=== PATIENT | female | born 1960 | race Asian ===

== ENCOUNTER 2018-08-21 08:21 | Emergency (ER) | payer MEDICAID, OTHER ==
[~2018-08-21] VITALS: Ht 160 cm; Wt 52.3 kg
[2018-08-21] MEDS ORDERED: ACETAMINOPHEN 500 MG TABLET PO ONE ×2 (09:00→16:00)
[2018-08-21 09:26] LABS: BASOPHILS % (AUTO) 0.4 % (0.0-2.0); EOSINOPHILS % (AUTO) 0 % (1.0-6.0); HEMATOCRIT 39.8 % (36-46); HEMOGLOBIN 13.3 g/dL (12.0-16.0); LYMPHOCYTES # (AUTO) 0.9 K/uL (1.0-4.8); LYMPHOCYTES % (AUTO) 7.3 % (22.0-44.0); MEAN CORPUSCULAR HEMOGLOBIN 29.1 pg (26.0-34.0); MEAN CORPUSCULAR HGB CONC 33.5 G/dL (31.0-37.0); MEAN CORPUSCULAR VOLUME 87 fL (80-100); MONOCYTES # (AUTO) 0.8 K/uL (0.1-1.0); NEUTROPHILS # (AUTO) 11.1 K/uL (1.8-7.7); PLATELET COUNT (AUTO) 284 K/uL (150-450); RED BLOOD CELL COUNT(AUTO) 4.58 MIL/uL (4.00-5.20); RED CELL DISTRIBUTION WIDTH 12.5 % (11.5-14.5)
[2018-08-21 09:27] LABS: NEUTROPHILS % (AUTO) 86.3 % (40.0-70.0)
[2018-08-21] MEDS ORDERED: KETOROLAC TROMETHAMINE 30 MG/ML VIAL IVP ONE (09:45)
[2018-08-21] MEDS ORDERED: SODIUM CHLORIDE 0.9% 1,000 ML IV ONE (09:45)
[2018-08-21 09:47] LABS: ANION GAP 8 mmol/L (8-16); CALCIUM, TOTAL 8.9 mg/dL (8.8-10.5); CARBON DIOXIDE 27 mmol/L (22-29); CHLORIDE 100 mmol/L (98-107); CREATININE 0.73 mg/dL (0.60-1.30); GLOMERULAR FILTR. RATE CALC > 60 mL/min (>60); GLUCOSE,RANDOM 101 mg/dL (70-110); POTASSIUM 3.1 mmol/L (3.5-5.1); SODIUM SERUM 135 mmol/L (136-145); UREA NITROGEN, BLOOD 8 mg/dL (7-18)
[2018-08-21 09:50] LABS: APPEARANCE,URINE CLOUDY (CLEAR); BILIRUBIN,URINE NEGATIVE (NEGATIVE); GLUCOSE, URINE (UA) NEGATIVE (NEGATIVE); KETONES,URINE NEGATIVE (NEGATIVE); LEUKOCYTE ESTERASE ,URINE SMALL (NEGATIVE); NITRATE,URINE POSITIVE (NEGATIVE); OCCULT BLOOD,URINE LARGE (NEGATIVE); PROTEIN,URINE NEGATIVE (NEGATIVE); UROBILINOGEN,URINE 0.2 mg/dL (<=1.0)
[2018-08-21 09:51] LABS: ALANINE AMINOTRANSFERASE 17 U/L (12-78); ALBUMIN 3.2 g/dL (3.4-5.0); ALKALINE PHOSPHATASE 78 U/L (46-116); ASPARTATE AMINOTRANSFERASE 16 U/L (15-37); BILIRUBIN,TOTAL 0.6 mg/dL (0.1-1.0); LIPASE 105 U/L (73-393); TOTAL PROTEIN, SERUM 7.6 g/dL (6.4-8.2)
[2018-08-21 10:02] LABS: BACTERIA,URINE Many /HPF (None Seen); SQUAMOUS EPITHELIAL CELL,UR Few /LPF (None Seen)
[2018-08-21 10:10] LABS: INFLUENZA TYPE A NEGATIVE FOR TYPE A (NEGATIVE); INFLUENZA TYPE B NEGATIVE FOR TYPE B (NEGATIVE)
[2018-08-21] MEDS ORDERED: IOVERSOL 350 MG/ML 100 ML VIAL ONE (10:18)
[2018-08-21] MEDS ORDERED: PIPERACILLIN/TAZO 3.375 GM/D5W 50 ML IV ONE (14:30)
[2018-08-21] MEDS ORDERED: POTASSIUM CHLORIDE 20 MEQ ER TABLET PO ONE (14:30)
[2018-08-21] MEDS ORDERED: IBUPROFEN 600 MG TABLET PO ONE (16:00)
[2018-08-21 16:25] VITALS: BP 157/77
== END 2018-08-21 16:40 | disposition home or self-care (01) ==
LOC: EMS 08:22
DX: N39.0 Urinary tract infection, site not specified (principal); F17.210 Nicotine dependence, cigarettes, uncomplicated
CPT/HCPCS: 36415; 74176; 76856; 80053; 81001; 83690; 84484; 85025; 87077; 87086; 87186; 87804; 93005; 96365; 96375; 99284; J1885; J2543; J7030; Q9967

== ENCOUNTER 2021-11-29 00:16 | Emergency (ER) | payer MEDICAID ==
[~2021-11-29] VITALS: Ht 160 cm; Wt 63.1 kg
[2021-11-29 01:33] VITALS: BP 135/96
[2021-11-29] MEDS ORDERED: DOXYCYCLINE HYCLATE 100 MG TABLET PO ONE (01:45)
[2021-11-29] MEDS ORDERED: IBUPROFEN 600 MG TABLET PO ONE (01:45)
[2021-11-29] MEDS ORDERED: DOXY-354 PO (02:09)
[2021-11-29] MEDS ORDERED: IBUP-2070 PO (02:16)
== END 2021-11-29 02:26 | disposition left against medical advice (07) ==
LOC: EMS 00:17
DX: S60.444A External constriction of right ring finger, initial encounter (principal); L03.011 Cellulitis of right finger; F17.210 Nicotine dependence, cigarettes, uncomplicated; W49.04XA Ring or other jewelry causing external constriction, initial encounter; Y93.89 Activity, other specified; Y92.89 Other specified places as the place of occurrence of the external cause; Y99.8 Other external cause status
CPT/HCPCS: 99283; 99284

== ENCOUNTER 2023-04-29 15:12 | Inpatient (IN) | payer MEDICAID ==
[~2023-04-29] VITALS: Ht 165.1 cm; Wt 53.8 kg
[~2023-04-29 15:12] MED LIST: AMOX1TAB15 PO
[2023-04-29] MEDS ORDERED: 0.9% SODIUM CHLORIDE 10 ML SYRINGE IVP PRN (15:30)
[2023-04-29] MEDS ORDERED: SODIUM CHLORIDE 0.9% 100 ML ONE (15:49)
[2023-04-29] MEDS ORDERED: IOHEXOL 350 MG/ML 100 ML VIAL ONE (15:49)
[2023-04-29 16:10] LABS: BASOPHILS % (AUTO) 0.5 % (0.0-2.0); EOSINOPHILS % (AUTO) 0.4 % (1.0-6.0); HEMATOCRIT 33.6 % (36-46); HEMOGLOBIN 10.4 g/dL (12.0-16.0); LYMPHOCYTES # (AUTO) 0.9 K/uL (1.0-4.8); LYMPHOCYTES % (AUTO) 8.6 % (22.0-44.0); MEAN CORPUSCULAR HEMOGLOBIN 24.1 pg (26.0-34.0); MEAN CORPUSCULAR HGB CONC 31.1 G/dL (31.0-37.0); MEAN CORPUSCULAR VOLUME 78 fL (80-100); MONOCYTES # (AUTO) 0.6 K/uL (0.1-1.0); MONOCYTES % (AUTO) 6.1 % (2.0-9.0); NEUTROPHILS # (AUTO) 8.6 K/uL (1.8-7.7); NEUTROPHILS % (AUTO) 84.4 % (40.0-70.0); PLATELET COUNT (AUTO) 272 K/uL (150-450); RED BLOOD CELL COUNT(AUTO) 4.32 MIL/uL (4.00-5.20); RED CELL DISTRIBUTION WIDTH 20.2 % (11.5-14.5); WHITE BLOOD COUNT (AUTO) 10.2 K/uL (4.5-11.0)
[2023-04-29 16:18] LABS: COVID AG,FIA SOURCE NASAL SWAB
[2023-04-29 16:22] LABS: ANION GAP 13 mmol/L (8-16); CALCIUM, TOTAL 8.3 mg/dL (8.8-10.5); CARBON DIOXIDE 18 mmol/L (22-29); CHLORIDE 106 mmol/L (98-107); CREATININE 3.02 mg/dL (0.60-1.30); GLOMERULAR FILTR. RATE CALC 16 mL/min (>60); GLUCOSE,RANDOM 134 mg/dL (70-110); POTASSIUM 4.1 mmol/L (3.5-5.1); SODIUM SERUM 137 mmol/L (136-145); UREA NITROGEN, BLOOD 60 mg/dL (7-18)
[2023-04-29 16:27] LABS: AMMONIA 13 umol/L (11-32); LACTIC ACID 1.1 mmol/L (0.4-2.0)
[2023-04-29 16:29] LABS: B-TYPE NATRIURETIC PEPTIDE > 5000 pg/mL (0-100)
[2023-04-29] MEDS ORDERED: SODIUM CHLORIDE 0.9% 1,000 ML IV ONE (16:30)
[2023-04-29 16:33] LABS: INR 1.2 (0.9-1.1); PROTHROMBIN TIME 12.2 SEC (9.4-11.6)
[2023-04-29 16:35] LABS: TROPONIN I-HIGH SENSITIVITY 2279 ng/L (<51)
[2023-04-29 16:36] LABS: ALCOHOL, BLOOD (SERUM) < 3 mg/dL (0-10)
[2023-04-29 16:38] LABS: SARS-COV2 (COVID) ANTIGEN,FIA Negative (Negative)
[2023-04-29 16:43] LABS: APPEARANCE,URINE CLEAR (CLEAR); BILIRUBIN,URINE NEGATIVE (NEGATIVE); COLOR,URINE COLORLESS (YELLOW); GLUCOSE, URINE (UA) NEGATIVE (NEGATIVE); KETONES,URINE NEGATIVE (NEGATIVE); LEUKOCYTE ESTERASE ,URINE TRACE (NEGATIVE); NITRATE,URINE NEGATIVE (NEGATIVE); OCCULT BLOOD,URINE LARGE (NEGATIVE); PROTEIN,URINE NEGATIVE (NEGATIVE); SPECIFIC GRAVITIY, URINE 1.007 (1.003-1.030); UROBILINOGEN,URINE <=1.0 mg/dL (<=1.0)
[2023-04-29] MEDS ORDERED: LORazepam 2 MG/ML VIAL IVP ONE (16:45)
[2023-04-29 16:47] LABS: ALANINE AMINOTRANSFERASE 148 U/L (12-78); ALBUMIN 3.1 g/dL (3.4-5.0); ALKALINE PHOSPHATASE 332 U/L (46-116); ASPARTATE AMINOTRANSFERASE 82 U/L (15-37); BILIRUBIN,TOTAL 0.7 mg/dL (0.1-1.0); TOTAL PROTEIN, SERUM 7.7 g/dL (6.4-8.2)
[2023-04-29 16:50] LABS: AMPHET/METH SCREEN,URINE NEGATIVE (NEGATIVE); BARBITURATE SCREEN, URINE NEGATIVE (NEGATIVE); BENZODIAZEPINES SCREEN,URINE NEGATIVE (NEGATIVE); CANNABINOID SCREEN,URINE NEGATIVE (NEGATIVE); COCAINE SCREEN,URINE NEGATIVE (NEGATIVE); METHADONE SCREEN, URINE NEGATIVE (NEGATIVE); OPIATE SCREEN,URINE NEGATIVE (NEGATIVE); PHENCYCLIDINE SCREEN,URINE NEGATIVE (NEGATIVE)
[2023-04-29 16:54] LABS: ALCOHOL, URINE DRUG SCREEN NEGATIVE (NEGATIVE)
[2023-04-29 16:59] LABS: CREATINE KINASE, TOTAL ONLY 466 U/L (26-192)
[2023-04-29 17:10] LABS: RBC,URINE 26-50 /HPF (0-2)
[2023-04-29 17:11] LABS: BACTERIA,URINE None Seen /HPF (None Seen); WBC,URINE None Seen /HPF (0-5)
[2023-04-29 17:34] LABS: PLATELET MORPHOLOGY COMMENT LARGE PLTS PRESENT
[2023-04-29 18:01] LABS: TROPONIN I-HIGH SENSITIVITY 1749 ng/L (<51)
[2023-04-29] MEDS ORDERED: ASPIRIN 325 MG TABLET PO ONE (18:15)
[2023-04-29 18:43] LABS: INFLUENZA TYPE A NEGATIVE FOR TYPE A (NEGATIVE); INFLUENZA TYPE B NEGATIVE FOR TYPE B (NEGATIVE)
[2023-04-29] MEDS ORDERED: HYDROCODONE/ACETAMINOPHEN 5-325 MG TABLET PO PRN (20:15)
[2023-04-29] MEDS ORDERED: BISACODYL 10 MG RECTAL RECTAL SUPPOSITORY PR PRN (20:15)
[2023-04-29] MEDS ORDERED: ONDANSETRON HCL 4 MG/2 ML VIAL IVP PRN (20:15)
[2023-04-29] MEDS ORDERED: ACETAMINOPHEN 325 MG TABLET PO PRN (20:15)
[2023-04-29] MEDS: DOCUSATE SODIUM 100 MG CAPSULE PO SCH (20:38)
[2023-04-29] MEDS: CARVEDILOL 3.125 MG TABLET PO SCH (20:38)
[2023-04-29 23:15] VITALS: BP 167/107; PULSE 83; RESP 22; TEMP 98.5; O2SAT 97
[2023-04-30] VITALS (7 sets, daily range): BP systolic 118–170; BP diastolic 80–110; PULSE 60–81; RESP 17–28; TEMP 98.8–100.6; O2SAT 97–100
[2023-04-30] MEDS ORDERED: LORazepam 2 MG/ML VIAL IVP ONE (00:45)
[2023-04-30 05:09] LABS: BASOPHILS % (AUTO) 0.5 % (0.0-2.0); EOSINOPHILS % (AUTO) 1.2 % (1.0-6.0); HEMATOCRIT 29.3 % (36-46); HEMOGLOBIN 9.2 g/dL (12.0-16.0); LYMPHOCYTES # (AUTO) 0.8 K/uL (1.0-4.8); LYMPHOCYTES % (AUTO) 7.5 % (22.0-44.0); MEAN CORPUSCULAR HEMOGLOBIN 24.4 pg (26.0-34.0); MEAN CORPUSCULAR HGB CONC 31.2 G/dL (31.0-37.0); MEAN CORPUSCULAR VOLUME 78 fL (80-100); MONOCYTES # (AUTO) 0.8 K/uL (0.1-1.0); MONOCYTES % (AUTO) 7.6 % (2.0-9.0); NEUTROPHILS # (AUTO) 8.4 K/uL (1.8-7.7); NEUTROPHILS % (AUTO) 83.2 % (40.0-70.0); PLATELET COUNT (AUTO) 224 K/uL (150-450); RED BLOOD CELL COUNT(AUTO) 3.75 MIL/uL (4.00-5.20); RED CELL DISTRIBUTION WIDTH 20.6 % (11.5-14.5); WHITE BLOOD COUNT (AUTO) 10.1 K/uL (4.5-11.0)
[2023-04-30 05:15] LABS: ANION GAP 15 mmol/L (8-16); CALCIUM, TOTAL 7.6 mg/dL (8.8-10.5); CARBON DIOXIDE 15 mmol/L (22-29); CHLORIDE 110 mmol/L (98-107); CREATININE 3.55 mg/dL (0.60-1.30); GLOMERULAR FILTR. RATE CALC 13 mL/min (>60); GLUCOSE,RANDOM 112 mg/dL (70-110); POTASSIUM 4.6 mmol/L (3.5-5.1); SODIUM SERUM 140 mmol/L (136-145); UREA NITROGEN, BLOOD 63 mg/dL (7-18)
[2023-04-30 05:25] LABS: B-TYPE NATRIURETIC PEPTIDE > 5000 pg/mL (0-100)
[2023-04-30 05:26] LABS: TROPONIN I-HIGH SENSITIVITY 1871 ng/L (<51)
[2023-04-30] MEDS: ETHYL ALCOHOL 62% ANTISEPTIC NASAL SANITIZER 0.6 ML AMPUL NASAL SCH ×2 (08:08→20:24)
[2023-04-30] MEDS: ATORVASTATIN CALCIUM 40 MG TABLET PO SCH ×3 (08:08→08:54)
[2023-04-30] MEDS: DOCUSATE SODIUM 100 MG CAPSULE PO SCH ×3 (08:09→20:24)
[2023-04-30] MEDS: PANTOPRAZOLE SODIUM 40 MG DR TABLET PO SCH ×2 (08:09→08:54)
[2023-04-30] MEDS: CARVEDILOL 3.125 MG TABLET PO SCH ×2 (08:09→20:24)
[2023-04-30] MEDS ORDERED: HydrALAZINE HCL 20 MG/ML VIAL IVP PRN (09:30)
[2023-04-30] MEDS ORDERED: SODIUM BICARBONATE 100 MEQ in DEXTROSE 5%-WATER 1,000 ML IV SCH (10:30)
[2023-04-30] MEDS: LABETALOL HCL 5 MG/ML 20 ML VIAL IVP PRN ×2 (11:17→21:49)
[2023-04-30] MEDS: SODIUM BICARBONATE 150 MEQ in DEXTROSE 5%-WATER 1,000 ML IV SCH ×2 (13:56→23:29)
[2023-04-30] MEDS: HydrALAZINE HCL 20 MG/ML VIAL IVP PRN (16:37)
[2023-04-30 17:28] LABS: ANION GAP 15 mmol/L (8-16); CALCIUM, TOTAL 8.3 mg/dL (8.8-10.5); CARBON DIOXIDE 15 mmol/L (22-29); CHLORIDE 109 mmol/L (98-107); CREATININE 4.52 mg/dL (0.60-1.30); GLOMERULAR FILTR. RATE CALC 10 mL/min (>60); GLUCOSE,RANDOM 124 mg/dL (70-110); POTASSIUM 5.1 mmol/L (3.5-5.1); SODIUM SERUM 139 mmol/L (136-145); UREA NITROGEN, BLOOD 76 mg/dL (7-18)
[2023-04-30 17:32] LABS: ACETAMINOPHEN < 2 mcg/mL (10-30)
[2023-04-30 17:38] LABS: SALICYLATE 3.6 mg/dL (2.8-20.0)
[2023-05-01] VITALS: BP 121/97; PULSE 63; RESP 20; TEMP 99.6; O2SAT 99
[2023-05-01 04:00] VITALS: BP 161/92; PULSE 77; RESP 18; TEMP 98.5; O2SAT 99
[2023-05-01 05:05] LABS: CREATININE,URINE RANDOM 35.5 mg/dL (30.0-125.0)
[2023-05-01 05:34] LABS: BASOPHILS % (AUTO) 0.6 % (0.0-2.0); EOSINOPHILS % (AUTO) 0.3 % (1.0-6.0); HEMATOCRIT 28.3 % (36-46); HEMOGLOBIN 8.8 g/dL (12.0-16.0); LYMPHOCYTES # (AUTO) 0.7 K/uL (1.0-4.8); LYMPHOCYTES % (AUTO) 5.9 % (22.0-44.0); MEAN CORPUSCULAR HEMOGLOBIN 24.1 pg (26.0-34.0); MEAN CORPUSCULAR HGB CONC 31.2 G/dL (31.0-37.0); MEAN CORPUSCULAR VOLUME 77 fL (80-100); MONOCYTES # (AUTO) 1.1 K/uL (0.1-1.0); MONOCYTES % (AUTO) 9.6 % (2.0-9.0); NEUTROPHILS % (AUTO) 83.6 % (40.0-70.0); PLATELET COUNT (AUTO) 211 K/uL (150-450); RED BLOOD CELL COUNT(AUTO) 3.66 MIL/uL (4.00-5.20)
[2023-05-01 05:42] LABS: CREATININE 5.25 mg/dL (0.60-1.30); POTASSIUM 4.7 mmol/L (3.5-5.1)
[2023-05-01 05:56] LABS: TROPONIN I-HIGH SENSITIVITY 1276 ng/L (<51)
[2023-05-01] MEDS: HydrALAZINE HCL 20 MG/ML VIAL IVP PRN ×2 (06:42→15:58)
[2023-05-01] MEDS: LABETALOL HCL 5 MG/ML 20 ML VIAL IVP PRN (07:58)
[2023-05-01 08:00] VITALS: BP 187/97; PULSE 71; RESP 24; TEMP 97.7; O2SAT 98
[2023-05-01] MEDS: ETHYL ALCOHOL 62% ANTISEPTIC NASAL SANITIZER 0.6 ML AMPUL NASAL SCH ×2 (08:18→21:47)
[2023-05-01] MEDS: ASPIRIN 81 MG CHEWABLE TABLET PO SCH (08:18)
[2023-05-01] MEDS: ATORVASTATIN CALCIUM 40 MG TABLET PO SCH (08:18)
[2023-05-01] MEDS: DOCUSATE SODIUM 100 MG CAPSULE PO SCH ×2 (08:19→21:00)
[2023-05-01] MEDS: CARVEDILOL 3.125 MG TABLET PO SCH ×2 (09:00→21:00)
[2023-05-01] MEDS: PANTOPRAZOLE SODIUM 40 MG DR TABLET PO SCH (10:19)
[2023-05-01 12:00] VITALS: BP 155/65; PULSE 62; RESP 22; TEMP 97.5; O2SAT 97
[2023-05-01] MEDS: LORazepam 0.5 MG TABLET PO PRN (15:57)
[2023-05-01 16:00] VITALS: BP 144/66; PULSE 52; RESP 24; TEMP 97.7; O2SAT 98
[2023-05-01] MEDS: MORPHINE SULFATE 2 MG/ML SYRINGE IVP PRN (16:25)
[2023-05-01] MEDS: SODIUM BICARBONATE 150 MEQ in DEXTROSE 5%-WATER 1,000 ML IV SCH (16:30)
[2023-05-01 20:00] VITALS: BP 145/64; PULSE 59; RESP 16; TEMP 97.7; O2SAT 98
[2023-05-02] VITALS: BP 152/76; PULSE 68; RESP 15; TEMP 98.4; O2SAT 98
[2023-05-02 04:00] VITALS: BP 169/70; PULSE 83; RESP 16; TEMP 98.5; O2SAT 96
[2023-05-02] MEDS: SODIUM BICARBONATE 150 MEQ in DEXTROSE 5%-WATER 1,000 ML IV SCH ×2 (04:31→20:28)
[2023-05-02] MEDS: LABETALOL HCL 5 MG/ML 20 ML VIAL IVP PRN ×2 (04:36→12:54)
[2023-05-02 05:39] LABS: BASOPHILS % (AUTO) 0.8 % (0.0-2.0); EOSINOPHILS % (AUTO) 2.4 % (1.0-6.0); HEMATOCRIT 27.8 % (36-46); HEMOGLOBIN 8.9 g/dL (12.0-16.0); LYMPHOCYTES # (AUTO) 0.8 K/uL (1.0-4.8); LYMPHOCYTES % (AUTO) 6.3 % (22.0-44.0); MEAN CORPUSCULAR HEMOGLOBIN 24.2 pg (26.0-34.0); MEAN CORPUSCULAR HGB CONC 31.8 G/dL (31.0-37.0); MEAN CORPUSCULAR VOLUME 76 fL (80-100); MONOCYTES % (AUTO) 7.5 % (2.0-9.0); PLATELET COUNT (AUTO) 220 K/uL (150-450); RED BLOOD CELL COUNT(AUTO) 3.66 MIL/uL (4.00-5.20); RED CELL DISTRIBUTION WIDTH 19.9 % (11.5-14.5); WHITE BLOOD COUNT (AUTO) 13.2 K/uL (4.5-11.0)
[2023-05-02 05:51] LABS: CALCIUM, TOTAL 7.4 mg/dL (8.8-10.5); CREATININE 5.91 mg/dL (0.60-1.30); POTASSIUM 4.5 mmol/L (3.5-5.1)
[2023-05-02 08:00] VITALS: BP 167/92; PULSE 90; RESP 29; TEMP 98.9; O2SAT 95
[2023-05-02] MEDS: ASPIRIN 81 MG CHEWABLE TABLET PO SCH (08:17)
[2023-05-02] MEDS: CARVEDILOL 3.125 MG TABLET PO SCH ×2 (08:17→20:56)
[2023-05-02] MEDS: PANTOPRAZOLE SODIUM 40 MG DR TABLET PO SCH (08:17)
[2023-05-02] MEDS: ETHYL ALCOHOL 62% ANTISEPTIC NASAL SANITIZER 0.6 ML AMPUL NASAL SCH ×2 (08:17→20:55)
[2023-05-02] MEDS: ATORVASTATIN CALCIUM 40 MG TABLET PO SCH (08:18)
[2023-05-02] MEDS: DOCUSATE SODIUM 100 MG CAPSULE PO SCH ×2 (08:18→20:56)
[2023-05-02 10:07] LABS: LDL CHOLESTEROL DIRECT 73 mg/dL (0-99)
[2023-05-02 12:00] VITALS: BP 154/83; PULSE 74; RESP 23; TEMP 98.1; O2SAT 97
[2023-05-02] MEDS: CefTRIAXone 1 GM/DEXTROSE 50 ML IV SCH (12:35)
[2023-05-02] MEDS ORDERED: SODIUM CHLORIDE 0.9% 250 ML IV ONE (12:36)
[2023-05-02] MEDS ORDERED: MIDAZOLAM HCL 2 MG/2 ML VIAL IVP ONE (14:15)
[2023-05-02] MEDS ORDERED: LIDOCAINE/PF 1% 30 ML VIAL ONE ×2 (14:22→15:33)
[2023-05-02] MEDS ORDERED: IOHEXOL 300 MG/ML 50 ML VIAL ONE (14:22)
[2023-05-02 16:00] VITALS: BP 121/70; PULSE 60; RESP 16; TEMP 97.2; O2SAT 94
[2023-05-02] MEDS: MORPHINE SULFATE 2 MG/ML SYRINGE IVP PRN ×2 (17:04→23:41)
[2023-05-02 20:00] VITALS: PULSE 83
[2023-05-02] MEDS: LORazepam 0.5 MG TABLET PO PRN (20:56)
[2023-05-03] VITALS: BP 160/70; PULSE 69; RESP 14; TEMP 99; O2SAT 96
[2023-05-03 00:20] LABS: HEMATOCRIT 24.6 % (36-46); HEMOGLOBIN 7.7 g/dL (12.0-16.0)
[2023-05-03 04:00] VITALS: BP 152/92; PULSE 74; RESP 12; TEMP 98.3; O2SAT 95
[2023-05-03 05:17] LABS: BASOPHILS % (AUTO) 0.3 % (0.0-2.0); EOSINOPHILS % (AUTO) 2.9 % (1.0-6.0); HEMATOCRIT 24.8 % (36-46); HEMOGLOBIN 7.8 g/dL (12.0-16.0); LYMPHOCYTES # (AUTO) 0.8 K/uL (1.0-4.8); LYMPHOCYTES % (AUTO) 6.8 % (22.0-44.0); MEAN CORPUSCULAR HEMOGLOBIN 24.1 pg (26.0-34.0); MEAN CORPUSCULAR HGB CONC 31.5 G/dL (31.0-37.0); MEAN CORPUSCULAR VOLUME 77 fL (80-100); MONOCYTES # (AUTO) 1.2 K/uL (0.1-1.0); MONOCYTES % (AUTO) 10.7 % (2.0-9.0); NEUTROPHILS # (AUTO) 9.1 K/uL (1.8-7.7); NEUTROPHILS % (AUTO) 79.3 % (40.0-70.0); PLATELET COUNT (AUTO) 212 K/uL (150-450); RED BLOOD CELL COUNT(AUTO) 3.24 MIL/uL (4.00-5.20); WHITE BLOOD COUNT (AUTO) 11.5 K/uL (4.5-11.0)
[2023-05-03] MEDS ORDERED: FentaNYL CITRATE PF 100 MCG/2 ML VIAL IVP ONE (05:26)
[2023-05-03] MEDS ORDERED: PROPOFOL 1% ISO-OSM 1000 MG/100 ML BOTTLE IV ONE (05:26)
[2023-05-03 05:27] LABS: CALCIUM, TOTAL 7.3 mg/dL (8.8-10.5); CREATININE 4.38 mg/dL (0.60-1.30); POTASSIUM 4.2 mmol/L (3.5-5.1)
[2023-05-03 08:00] VITALS: BP 164/99; PULSE 86; PULSE 89; RESP 18; TEMP 98.9; O2SAT 97
[2023-05-03] MEDS: ETHYL ALCOHOL 62% ANTISEPTIC NASAL SANITIZER 0.6 ML AMPUL NASAL SCH ×2 (08:48→20:56)
[2023-05-03] MEDS: DOCUSATE SODIUM 100 MG CAPSULE PO SCH ×2 (08:48→20:57)
[2023-05-03] MEDS: ATORVASTATIN CALCIUM 40 MG TABLET PO SCH (08:48)
[2023-05-03] MEDS: PANTOPRAZOLE SODIUM 40 MG DR TABLET PO SCH (08:48)
[2023-05-03] MEDS: ASPIRIN 81 MG CHEWABLE TABLET PO SCH (08:49)
[2023-05-03] MEDS: CARVEDILOL 3.125 MG TABLET PO SCH ×2 (08:49→20:57)
[2023-05-03] MEDS: MORPHINE SULFATE 2 MG/ML SYRINGE IVP PRN (08:57)
[2023-05-03] MEDS: LABETALOL HCL 5 MG/ML 20 ML VIAL IVP PRN (10:51)
[2023-05-03 12:00] VITALS: BP 156/69; PULSE 74; RESP 17; TEMP 99.1; O2SAT 96
[2023-05-03] MEDS: CefTRIAXone 1 GM/DEXTROSE 50 ML IV SCH (12:44)
[2023-05-03] MEDS: SODIUM CHLORIDE 0.9% 1,000 ML IV SCH (13:28)
[2023-05-03] MEDS: HydrALAZINE HCL 20 MG/ML VIAL IVP PRN (14:53)
[2023-05-03 16:00] VITALS: BP 160/74; PULSE 95; RESP 22; TEMP 99.2; O2SAT 95
[2023-05-03] MEDS: LORazepam 0.5 MG TABLET PO PRN ×2 (16:58→23:58)
[2023-05-03 20:00] VITALS: BP 159/82; PULSE 98; RESP 23; TEMP 98.8; O2SAT 96
[2023-05-04] VITALS (14 sets, daily range): BP systolic 107–185; BP diastolic 40–110; PULSE 52–93; RESP 15–21; TEMP 97.5–98.6; O2SAT 94–97
[2023-05-04] MEDS: MORPHINE SULFATE 2 MG/ML SYRINGE IVP PRN ×3 (00:25→14:26)
[2023-05-04 05:27] LABS: LYMPHOCYTES # (AUTO) 0.7 K/uL (1.0-4.8); WHITE BLOOD COUNT (AUTO) 9.2 K/uL (4.5-11.0)
[2023-05-04 05:29] LABS: BASOPHILS % (AUTO) 0.6 % (0.0-2.0); EOSINOPHILS % (AUTO) 3.3 % (1.0-6.0); HEMATOCRIT 22.1 % (36-46); LYMPHOCYTES % (AUTO) 7.8 % (22.0-44.0); MEAN CORPUSCULAR HEMOGLOBIN 24.1 pg (26.0-34.0); MEAN CORPUSCULAR HGB CONC 31.3 G/dL (31.0-37.0); MEAN CORPUSCULAR VOLUME 77 fL (80-100); MONOCYTES % (AUTO) 10.4 % (2.0-9.0); NEUTROPHILS # (AUTO) 7.2 K/uL (1.8-7.7); NEUTROPHILS % (AUTO) 77.9 % (40.0-70.0); PLATELET COUNT (AUTO) 222 K/uL (150-450); RED BLOOD CELL COUNT(AUTO) 2.86 MIL/uL (4.00-5.20); RED CELL DISTRIBUTION WIDTH 19.9 % (11.5-14.5)
[2023-05-04 05:33] LABS: CALCIUM, TOTAL 7.7 mg/dL (8.8-10.5); CREATININE 2.54 mg/dL (0.60-1.30); POTASSIUM 3.9 mmol/L (3.5-5.1)
[2023-05-04 05:34] LABS: HEMOGLOBIN 6.9 g/dL (12.0-16.0)
[2023-05-04] MEDS: LORazepam 0.5 MG TABLET PO PRN ×2 (08:05→16:28)
[2023-05-04] MEDS: HydrALAZINE HCL 20 MG/ML VIAL IVP PRN (08:22)
[2023-05-04] MEDS: ASPIRIN 81 MG CHEWABLE TABLET PO SCH (09:00)
[2023-05-04] MEDS: SODIUM CHLORIDE 0.9% 1,000 ML IV SCH (09:01)
[2023-05-04] MEDS ORDERED: SODIUM CHLORIDE 0.9% 500 ML IV ONE (10:02)
[2023-05-04] MEDS: PANTOPRAZOLE SODIUM 40 MG DR TABLET PO SCH (10:04)
[2023-05-04] MEDS: DOCUSATE SODIUM 100 MG CAPSULE PO SCH ×2 (10:04→21:05)
[2023-05-04] MEDS: ATORVASTATIN CALCIUM 40 MG TABLET PO SCH (10:04)
[2023-05-04] MEDS: CARVEDILOL 3.125 MG TABLET PO SCH ×2 (10:04→21:06)
[2023-05-04] MEDS: ETHYL ALCOHOL 62% ANTISEPTIC NASAL SANITIZER 0.6 ML AMPUL NASAL SCH ×2 (10:05→21:05)
[2023-05-04] MEDS: AmLODIPine BESYLATE 10 MG TABLET PO SCH (10:05)
[2023-05-04] MEDS: DEXMEDETOMIDINE HCL 400 MCG in SODIUM CHLORIDE 0.9% 96 ML IV PRN ×2 (10:39→16:30)
[2023-05-04] MEDS: CefTRIAXone 1 GM/DEXTROSE 50 ML IV SCH (12:00)
[2023-05-04] MEDS ORDERED: VANCOMYCIN HCL 500 MG in DEXTROSE 5%-WATER 100 ML IV ONE (16:00)
[2023-05-04 16:39] LABS: % IRON SATURATION 7.9 % (22-44)
[2023-05-04 17:19] LABS: HEMATOCRIT 24.9 % (36-46); HEMOGLOBIN 7.7 g/dL (12.0-16.0)
[2023-05-04] MEDS: PANTOPRAZOLE SODIUM 40 MG/VIAL IVP SCH (21:05)
[2023-05-05] VITALS: BP 154/78; PULSE 67; PULSE 88; RESP 19; TEMP 98.1; O2SAT 96
[2023-05-05] MEDS: LORazepam 0.5 MG TABLET PO PRN ×3 (00:06→17:23)
[2023-05-05] MEDS: DEXMEDETOMIDINE HCL 400 MCG in SODIUM CHLORIDE 0.9% 96 ML IV PRN ×2 (02:21→08:10)
[2023-05-05 04:00] VITALS: BP 129/65; PULSE 43; RESP 18; TEMP 97.9; O2SAT 98
[2023-05-05] MEDS: SODIUM CHLORIDE 0.9% 1,000 ML IV SCH ×2 (04:00→11:02)
[2023-05-05 05:49] LABS: BASOPHILS % (AUTO) 0.7 % (0.0-2.0); EOSINOPHILS % (AUTO) 6.2 % (1.0-6.0); HEMOGLOBIN 7.8 g/dL (12.0-16.0); LYMPHOCYTES # (AUTO) 0.8 K/uL (1.0-4.8); LYMPHOCYTES % (AUTO) 9.4 % (22.0-44.0); MEAN CORPUSCULAR HGB CONC 31.2 G/dL (31.0-37.0); MEAN CORPUSCULAR VOLUME 80 fL (80-100); MONOCYTES # (AUTO) 0.7 K/uL (0.1-1.0); MONOCYTES % (AUTO) 7.6 % (2.0-9.0); NEUTROPHILS # (AUTO) 6.5 K/uL (1.8-7.7); NEUTROPHILS % (AUTO) 76.1 % (40.0-70.0); PLATELET COUNT (AUTO) 220 K/uL (150-450); RED BLOOD CELL COUNT(AUTO) 3.13 MIL/uL (4.00-5.20); RED CELL DISTRIBUTION WIDTH 19.7 % (11.5-14.5); WHITE BLOOD COUNT (AUTO) 8.5 K/uL (4.5-11.0)
[2023-05-05 06:04] LABS: ALBUMIN 2.3 g/dL (3.4-5.0); BILIRUBIN,TOTAL 0.7 mg/dL (0.1-1.0); CREATININE 1.98 mg/dL (0.60-1.30); POTASSIUM 4.1 mmol/L (3.5-5.1); TOTAL PROTEIN, SERUM 6.1 g/dL (6.4-8.2)
[2023-05-05 08:00] VITALS: BP 152/83; PULSE 58; PULSE 63; RESP 17; TEMP 97.4; O2SAT 99
[2023-05-05] MEDS ORDERED: VANCOMYCIN HCL 500 MG in DEXTROSE 5%-WATER 100 ML IV SCH (08:00)
[2023-05-05] MEDS: MAGNESIUM HYDROXIDE SUSPENSION 30 ML UDCUP PO PRN (08:51)
[2023-05-05] MEDS: PANTOPRAZOLE SODIUM 40 MG/VIAL IVP SCH ×2 (08:51→21:33)
[2023-05-05] MEDS: HydrALAZINE HCL 20 MG/ML VIAL IVP PRN ×2 (08:51→15:32)
[2023-05-05] MEDS: AmLODIPine BESYLATE 10 MG TABLET PO SCH (08:52)
[2023-05-05] MEDS: DOCUSATE SODIUM 100 MG CAPSULE PO SCH ×2 (08:53→21:33)
[2023-05-05] MEDS: ATORVASTATIN CALCIUM 40 MG TABLET PO SCH (08:53)
[2023-05-05] MEDS: CARVEDILOL 3.125 MG TABLET PO SCH ×2 (08:53→21:33)
[2023-05-05] MEDS: ETHYL ALCOHOL 62% ANTISEPTIC NASAL SANITIZER 0.6 ML AMPUL NASAL SCH ×2 (08:54→21:35)
[2023-05-05] MEDS: ASPIRIN 81 MG CHEWABLE TABLET PO SCH (08:54)
[2023-05-05] MEDS: MORPHINE SULFATE 2 MG/ML SYRINGE IVP PRN (10:30)
[2023-05-05] MEDS: QUEtiapine FUMARATE 25 MG TABLET PO SCH ×3 (11:54→21:34)
[2023-05-05] MEDS: CefTRIAXone 1 GM/DEXTROSE 50 ML IV SCH (11:54)
[2023-05-05 12:00] VITALS: BP 136/83; PULSE 46; RESP 16; TEMP 98.7; O2SAT 94
[2023-05-05 16:00] VITALS: BP 139/75; PULSE 73; RESP 15; TEMP 98.6; O2SAT 97
[2023-05-05] MEDS ORDERED: LORazepam 1 MG TABLET PO PRN (17:45)
[2023-05-05] MEDS ORDERED: LORazepam 1 MG TABLET PO ONE (17:45)
[2023-05-05] MEDS: HydrALAZINE HCL 25 MG TABLET PO SCH (18:18)
[2023-05-05 20:00] VITALS: BP 121/61; PULSE 54; RESP 17; TEMP 97.5; O2SAT 95
[2023-05-05] MEDS: DIVALPROEX SODIUM 125 MG DR CAPSULE PO SCH (21:34)
[2023-05-05] MEDS: LORazepam 2 MG TABLET PO PRN (23:13)
[2023-05-06] VITALS (7 sets, daily range): BP systolic 120–162; BP diastolic 55–88; PULSE 44–69; RESP 17–31; TEMP 98.1–98.6; O2SAT 94–99
[2023-05-06] MEDS: DEXMEDETOMIDINE HCL 400 MCG in SODIUM CHLORIDE 0.9% 96 ML IV PRN ×3 (00:06→20:49)
[2023-05-06] MEDS: LORazepam 2 MG TABLET PO PRN ×4 (03:44→20:01)
[2023-05-06 05:09] LABS: BASOPHILS % (AUTO) 0.8 % (0.0-2.0); EOSINOPHILS % (AUTO) 4.9 % (1.0-6.0); HEMOGLOBIN 7.5 g/dL (12.0-16.0); LYMPHOCYTES # (AUTO) 0.9 K/uL (1.0-4.8); LYMPHOCYTES % (AUTO) 10.7 % (22.0-44.0); MEAN CORPUSCULAR HEMOGLOBIN 24.8 pg (26.0-34.0); MEAN CORPUSCULAR HGB CONC 31.3 G/dL (31.0-37.0); MEAN CORPUSCULAR VOLUME 79 fL (80-100); MONOCYTES % (AUTO) 11.5 % (2.0-9.0); NEUTROPHILS # (AUTO) 6.4 K/uL (1.8-7.7); NEUTROPHILS % (AUTO) 72.1 % (40.0-70.0); PLATELET COUNT (AUTO) 253 K/uL (150-450); RED BLOOD CELL COUNT(AUTO) 3.03 MIL/uL (4.00-5.20); RED CELL DISTRIBUTION WIDTH 19.4 % (11.5-14.5); WHITE BLOOD COUNT (AUTO) 8.9 K/uL (4.5-11.0)
[2023-05-06 05:28] LABS: ALBUMIN 2.2 g/dL (3.4-5.0); BILIRUBIN,TOTAL 0.3 mg/dL (0.1-1.0); CALCIUM, TOTAL 7.8 mg/dL (8.8-10.5); CREATININE 1.81 mg/dL (0.60-1.30); POTASSIUM 4.3 mmol/L (3.5-5.1); TOTAL PROTEIN, SERUM 5.9 g/dL (6.4-8.2); VANCOMYCIN,RANDOM 11.6 mcg/mL (25.0-50.0)
[2023-05-06] MEDS ORDERED: SODIUM CHLORIDE 0.9% 250 ML IV ONE (07:28)
[2023-05-06] MEDS: CARVEDILOL 3.125 MG TABLET PO SCH ×2 (08:25→20:49)
[2023-05-06] MEDS: DIVALPROEX SODIUM 125 MG DR CAPSULE PO SCH ×2 (08:25→20:00)
[2023-05-06] MEDS: VANCOMYCIN HCL 750 MG in DEXTROSE 5%-WATER 250 ML IV SCH (08:25)
[2023-05-06] MEDS: AmLODIPine BESYLATE 10 MG TABLET PO SCH (08:25)
[2023-05-06] MEDS: QUEtiapine FUMARATE 25 MG TABLET PO SCH ×3 (08:26→19:59)
[2023-05-06] MEDS: MORPHINE SULFATE 2 MG/ML SYRINGE IVP PRN ×2 (08:26→21:34)
[2023-05-06] MEDS: HydrALAZINE HCL 25 MG TABLET PO SCH ×2 (08:26→20:00)
[2023-05-06] MEDS: PANTOPRAZOLE SODIUM 40 MG/VIAL IVP SCH ×2 (08:27→20:01)
[2023-05-06] MEDS: ATORVASTATIN CALCIUM 40 MG TABLET PO SCH (08:27)
[2023-05-06] MEDS: ASPIRIN 81 MG CHEWABLE TABLET PO SCH (08:27)
[2023-05-06] MEDS: ETHYL ALCOHOL 62% ANTISEPTIC NASAL SANITIZER 0.6 ML AMPUL NASAL SCH ×2 (08:27→19:58)
[2023-05-06] MEDS: DOCUSATE SODIUM 100 MG CAPSULE PO SCH ×2 (08:27→19:58)
[2023-05-06] MEDS: CefTRIAXone 1 GM/DEXTROSE 50 ML IV SCH (12:23)
[2023-05-06] MEDS: SODIUM CHLORIDE 0.9% 1,000 ML IV SCH (19:58)
[2023-05-07] VITALS: BP 145/84; PULSE 45; PULSE 63; RESP 17; TEMP 97.7; O2SAT 98
[2023-05-07] MEDS: MORPHINE SULFATE 2 MG/ML SYRINGE IVP PRN (01:37)
[2023-05-07 04:00] VITALS: BP 141/64; PULSE 46; RESP 17; TEMP 98.3; O2SAT 98
[2023-05-07 08:00] VITALS: BP 195/109; PULSE 52; PULSE 81; RESP 25; TEMP 98; O2SAT 97
[2023-05-07 09:26] LABS: EOSINOPHILS % (AUTO) 5.2 % (1.0-6.0); HEMATOCRIT 24.4 % (36-46); HEMOGLOBIN 7.7 g/dL (12.0-16.0); LYMPHOCYTES % (AUTO) 11.8 % (22.0-44.0); MEAN CORPUSCULAR HEMOGLOBIN 25.4 pg (26.0-34.0); MEAN CORPUSCULAR HGB CONC 31.5 G/dL (31.0-37.0); MEAN CORPUSCULAR VOLUME 81 fL (80-100); MONOCYTES # (AUTO) 0.8 K/uL (0.1-1.0); MONOCYTES % (AUTO) 9.1 % (2.0-9.0); NEUTROPHILS # (AUTO) 6.2 K/uL (1.8-7.7); NEUTROPHILS % (AUTO) 72.9 % (40.0-70.0); PLATELET COUNT (AUTO) 267 K/uL (150-450); RED BLOOD CELL COUNT(AUTO) 3.02 MIL/uL (4.00-5.20); RED CELL DISTRIBUTION WIDTH 19.7 % (11.5-14.5); WHITE BLOOD COUNT (AUTO) 8.5 K/uL (4.5-11.0)
[2023-05-07 09:35] LABS: CALCIUM, TOTAL 8.1 mg/dL (8.8-10.5); CREATININE 1.65 mg/dL (0.60-1.30); POTASSIUM 4.1 mmol/L (3.5-5.1)
[2023-05-07] MEDS: ATORVASTATIN CALCIUM 40 MG TABLET PO SCH (10:16)
[2023-05-07] MEDS: ASPIRIN 81 MG CHEWABLE TABLET PO SCH (10:17)
[2023-05-07] MEDS: QUEtiapine FUMARATE 25 MG TABLET PO SCH ×3 (10:17→20:12)
[2023-05-07] MEDS: AmLODIPine BESYLATE 10 MG TABLET PO SCH (10:17)
[2023-05-07] MEDS: ETHYL ALCOHOL 62% ANTISEPTIC NASAL SANITIZER 0.6 ML AMPUL NASAL SCH ×2 (10:18→20:11)
[2023-05-07] MEDS: DOCUSATE SODIUM 100 MG CAPSULE PO SCH ×2 (10:18→20:11)
[2023-05-07] MEDS: CARVEDILOL 3.125 MG TABLET PO SCH ×2 (10:18→20:12)
[2023-05-07] MEDS: HydrALAZINE HCL 25 MG TABLET PO SCH ×2 (11:19→20:14)
[2023-05-07] MEDS: DIVALPROEX SODIUM 125 MG DR CAPSULE PO SCH ×2 (11:19→20:13)
[2023-05-07] MEDS: VANCOMYCIN HCL 750 MG in DEXTROSE 5%-WATER 250 ML IV SCH (11:20)
[2023-05-07] MEDS: PANTOPRAZOLE SODIUM 40 MG/VIAL IVP SCH ×2 (11:22→20:11)
[2023-05-07] MEDS: LORazepam 2 MG TABLET PO PRN ×3 (11:23→21:52)
[2023-05-07 12:00] VITALS: BP 164/80; PULSE 47; PULSE 61; RESP 18; TEMP 97.4; O2SAT 95
[2023-05-07] MEDS: CefTRIAXone 1 GM/DEXTROSE 50 ML IV SCH (14:02)
[2023-05-07] MEDS: DEXTROSE 5%-WATER 1,000 ML IV SCH (14:03)
[2023-05-07 16:00] VITALS: PULSE 55
[2023-05-07 20:00] VITALS: BP 138/65; PULSE 73; RESP 29; TEMP 99; O2SAT 98
[2023-05-07] MEDS: HydrALAZINE HCL 20 MG/ML VIAL IVP PRN (22:44)
[2023-05-08] VITALS: BP 163/74; PULSE 77; RESP 19; TEMP 98.6; O2SAT 97
[2023-05-08 01:03] LABS: GLUCOSE,POINT OF CARE 123 MG/DL (70-110)
[2023-05-08 04:00] VITALS: BP 142/71; PULSE 77; RESP 20; TEMP 98.1; O2SAT 96
[2023-05-08] MEDS: HydrALAZINE HCL 20 MG/ML VIAL IVP PRN ×2 (04:13→10:32)
[2023-05-08 05:06] LABS: BASOPHILS % (AUTO) 0.6 % (0.0-2.0); EOSINOPHILS % (AUTO) 4.4 % (1.0-6.0); HEMATOCRIT 29.6 % (36-46); HEMOGLOBIN 9.3 g/dL (12.0-16.0); LYMPHOCYTES % (AUTO) 9.2 % (22.0-44.0); MEAN CORPUSCULAR HEMOGLOBIN 24.7 pg (26.0-34.0); MEAN CORPUSCULAR HGB CONC 31.2 G/dL (31.0-37.0); MEAN CORPUSCULAR VOLUME 79 fL (80-100); MONOCYTES # (AUTO) 0.9 K/uL (0.1-1.0); NEUTROPHILS % (AUTO) 76.8 % (40.0-70.0); PLATELET COUNT (AUTO) 344 K/uL (150-450); RED BLOOD CELL COUNT(AUTO) 3.74 MIL/uL (4.00-5.20); RED CELL DISTRIBUTION WIDTH 20.2 % (11.5-14.5); WHITE BLOOD COUNT (AUTO) 10.5 K/uL (4.5-11.0)
[2023-05-08 05:22] LABS: CALCIUM, TOTAL 8.6 mg/dL (8.8-10.5); CREATININE 1.64 mg/dL (0.60-1.30); PHOSPHORUS 3.4 mg/dL (2.5-4.9); POTASSIUM 4.1 mmol/L (3.5-5.1)
[2023-05-08 08:00] VITALS: BP 147/71; PULSE 63; PULSE 79; RESP 20; TEMP 98.7; O2SAT 97
[2023-05-08] MEDS: QUEtiapine FUMARATE 25 MG TABLET PO SCH ×3 (08:14→20:50)
[2023-05-08] MEDS: AmLODIPine BESYLATE 10 MG TABLET PO SCH (08:14)
[2023-05-08] MEDS: ASPIRIN 81 MG CHEWABLE TABLET PO SCH (08:14)
[2023-05-08] MEDS: ATORVASTATIN CALCIUM 40 MG TABLET PO SCH (08:14)
[2023-05-08] MEDS: CARVEDILOL 3.125 MG TABLET PO SCH ×2 (08:14→20:50)
[2023-05-08] MEDS: DOCUSATE SODIUM 100 MG CAPSULE PO SCH ×2 (08:15→20:52)
[2023-05-08] MEDS: HydrALAZINE HCL 25 MG TABLET PO SCH (08:15)
[2023-05-08] MEDS: PANTOPRAZOLE SODIUM 40 MG/VIAL IVP SCH ×2 (08:17→20:50)
[2023-05-08] MEDS: ETHYL ALCOHOL 62% ANTISEPTIC NASAL SANITIZER 0.6 ML AMPUL NASAL SCH ×2 (08:17→20:50)
[2023-05-08] MEDS: VANCOMYCIN HCL 750 MG in DEXTROSE 5%-WATER 250 ML IV SCH (08:20)
[2023-05-08] MEDS: DIVALPROEX SODIUM 125 MG DR CAPSULE PO SCH ×2 (08:20→20:51)
[2023-05-08] MEDS: DEXTROSE 5%-WATER 1,000 ML IV SCH ×2 (08:23→23:01)
[2023-05-08 12:00] VITALS: BP 139/57; PULSE 61; RESP 19; TEMP 97.8; O2SAT 95
[2023-05-08] MEDS: CefTRIAXone 1 GM/DEXTROSE 50 ML IV SCH (12:37)
[2023-05-08 16:00] VITALS: BP 143/54; PULSE 58; PULSE 82; RESP 19; TEMP 98.1; O2SAT 97
[2023-05-08 20:00] VITALS: BP 161/66; PULSE 57; RESP 19; TEMP 97.4; O2SAT 99
[2023-05-08] MEDS: HydrALAZINE HCL 50 MG TABLET PO SCH (20:50)
[2023-05-08] MEDS: LORazepam 2 MG TABLET PO PRN (21:35)
[2023-05-09 00:19] VITALS: BP 146/71; PULSE 59; RESP 19; TEMP 98; O2SAT 100
[2023-05-09 04:53] VITALS: BP 156/80; PULSE 76; RESP 20; TEMP 97.6; O2SAT 98
[2023-05-09 07:22] LABS: CALCIUM, TOTAL 8.4 mg/dL (8.8-10.5); CREATININE 1.45 mg/dL (0.60-1.30); MAGNESIUM 1.9 mg/dL (1.80-2.40); PHOSPHORUS 3.8 mg/dL (2.5-4.9); POTASSIUM 3.5 mmol/L (3.5-5.1)
[2023-05-09 07:35] VITALS: BP 157/72; PULSE 64; RESP 18; TEMP 98; O2SAT 98
[2023-05-09] MEDS: VANCOMYCIN HCL 750 MG in DEXTROSE 5%-WATER 250 ML IV SCH (08:13)
[2023-05-09] MEDS: CARVEDILOL 3.125 MG TABLET PO SCH ×2 (08:14→21:51)
[2023-05-09] MEDS: QUEtiapine FUMARATE 25 MG TABLET PO SCH ×3 (08:14→21:51)
[2023-05-09] MEDS: PANTOPRAZOLE SODIUM 40 MG/VIAL IVP SCH ×2 (08:14→21:50)
[2023-05-09] MEDS: ASPIRIN 81 MG CHEWABLE TABLET PO SCH (08:14)
[2023-05-09] MEDS: DIVALPROEX SODIUM 125 MG DR CAPSULE PO SCH ×3 (08:14→21:52)
[2023-05-09] MEDS: DOCUSATE SODIUM 100 MG CAPSULE PO SCH ×3 (08:14→21:51)
[2023-05-09] MEDS: AmLODIPine BESYLATE 10 MG TABLET PO SCH (08:14)
[2023-05-09] MEDS: ATORVASTATIN CALCIUM 40 MG TABLET PO SCH (08:15)
[2023-05-09] MEDS: ETHYL ALCOHOL 62% ANTISEPTIC NASAL SANITIZER 0.6 ML AMPUL NASAL SCH ×2 (08:17→21:50)
[2023-05-09] MEDS: HydrALAZINE HCL 50 MG TABLET PO SCH ×2 (09:00→21:00)
[2023-05-09 11:20] VITALS: BP 144/78; PULSE 52; RESP 18; TEMP 98.2; O2SAT 98
[2023-05-09] MEDS: CefTRIAXone 1 GM/DEXTROSE 50 ML IV SCH (12:47)
[2023-05-09 12:50] LABS: BASOPHILS % (AUTO) 1.3 % (0.0-2.0); EOSINOPHILS % (AUTO) 4.1 % (1.0-6.0); HEMATOCRIT 31.3 % (36-46); HEMOGLOBIN 9.6 g/dL (12.0-16.0); LYMPHOCYTES # (AUTO) 1.1 K/uL (1.0-4.8); LYMPHOCYTES % (AUTO) 11.6 % (22.0-44.0); MEAN CORPUSCULAR HEMOGLOBIN 24.6 pg (26.0-34.0); MEAN CORPUSCULAR HGB CONC 30.6 G/dL (31.0-37.0); MEAN CORPUSCULAR VOLUME 81 fL (80-100); MONOCYTES # (AUTO) 0.7 K/uL (0.1-1.0); MONOCYTES % (AUTO) 7.5 % (2.0-9.0); NEUTROPHILS # (AUTO) 7.1 K/uL (1.8-7.7); NEUTROPHILS % (AUTO) 75.5 % (40.0-70.0); PLATELET COUNT (AUTO) 366 K/uL (150-450); RED BLOOD CELL COUNT(AUTO) 3.89 MIL/uL (4.00-5.20); RED CELL DISTRIBUTION WIDTH 20.5 % (11.5-14.5); WHITE BLOOD COUNT (AUTO) 9.4 K/uL (4.5-11.0)
[2023-05-09 15:33] VITALS: BP 144/75; PULSE 52; RESP 18; TEMP 98.4; O2SAT 97
[2023-05-09] MEDS: DEXTROSE 5%-WATER 1,000 ML IV SCH (15:41)
[2023-05-09 19:35] VITALS: BP 101/50; PULSE 59; RESP 19; TEMP 97.9; O2SAT 98
[2023-05-09] MEDS: ZOLPIDEM TARTRATE 5 MG TABLET PO PRN (21:51)
[2023-05-10 00:40] VITALS: BP 136/91; PULSE 62; RESP 20; TEMP 98; O2SAT 100
[2023-05-10 05:01] VITALS: BP 144/92; PULSE 57; RESP 19; TEMP 97.8; O2SAT 98
[2023-05-10] MEDS: DEXTROSE 5%-WATER 1,000 ML IV SCH (05:07)
[2023-05-10 07:31] VITALS: BP 133/75; PULSE 57; RESP 18; TEMP 97.6; O2SAT 93
[2023-05-10 07:41] LABS: CALCIUM, TOTAL 8.2 mg/dL (8.8-10.5); CREATININE 1.45 mg/dL (0.60-1.30); MAGNESIUM 2.1 mg/dL (1.80-2.40); PHOSPHORUS 3.9 mg/dL (2.5-4.9); POTASSIUM 3.3 mmol/L (3.5-5.1)
[2023-05-10] MEDS ORDERED: POTASSIUM CHLORIDE 20 MEQ ER TABLET PO ONE (07:45)
[2023-05-10] MEDS ORDERED: POTASSIUM CHLORIDE 10 MEQ in DEXTROSE 5%-0.45% SODIUM CHL 1,000 ML IV SCH (09:15)
[2023-05-10] MEDS: VANCOMYCIN HCL 750 MG in DEXTROSE 5%-WATER 250 ML IV SCH (09:46)
[2023-05-10] MEDS: CARVEDILOL 3.125 MG TABLET PO SCH ×2 (09:47→20:01)
[2023-05-10] MEDS: ATORVASTATIN CALCIUM 40 MG TABLET PO SCH (09:47)
[2023-05-10] MEDS: ETHYL ALCOHOL 62% ANTISEPTIC NASAL SANITIZER 0.6 ML AMPUL NASAL SCH ×2 (09:47→20:02)
[2023-05-10] MEDS: AmLODIPine BESYLATE 10 MG TABLET PO SCH (09:47)
[2023-05-10] MEDS: ASPIRIN 81 MG CHEWABLE TABLET PO SCH (09:47)
[2023-05-10] MEDS: QUEtiapine FUMARATE 25 MG TABLET PO SCH ×3 (09:48→20:02)
[2023-05-10] MEDS: HydrALAZINE HCL 50 MG TABLET PO SCH ×2 (09:48→20:01)
[2023-05-10] MEDS: DOCUSATE SODIUM 100 MG CAPSULE PO SCH ×2 (09:48→20:01)
[2023-05-10] MEDS: DIVALPROEX SODIUM 125 MG DR CAPSULE PO SCH ×2 (09:49→20:01)
[2023-05-10] MEDS: PANTOPRAZOLE SODIUM 40 MG/VIAL IVP SCH ×2 (10:21→20:02)
[2023-05-10 11:30] VITALS: BP 148/85; PULSE 53; RESP 19; TEMP 97.5; O2SAT 100
[2023-05-10] MEDS: CefTRIAXone 1 GM/DEXTROSE 50 ML IV SCH (12:25)
[2023-05-10 15:58] VITALS: BP 119/61; PULSE 53; RESP 18; TEMP 97.7; O2SAT 99
[2023-05-10] MEDS: ZOLPIDEM TARTRATE 5 MG TABLET PO PRN (20:01)
[2023-05-10 20:12] VITALS: BP 121/79; PULSE 64; RESP 22; TEMP 98
[2023-05-10] MEDS: MAGNESIUM HYDROXIDE SUSPENSION 30 ML UDCUP PO PRN (20:13)
== END 2023-05-10 20:45 | DRG 45 ==
LOC: EMS 15:13 → ICU 22:37 → EMS 23:01 → 5S 05-08 23:58
PROVIDERS: ADMIT Internal Medicine; ATTEND Internal Medicine
PROC: 0T25X0Z Change Drainage Device in Kidney, External Approach (ICD-10-PCS; 2023-05-02)
PROC: 30233N1 Transfusion of Nonautologous Red Blood Cells into Peripheral Vein, Percutaneous Approach (ICD-10-PCS; principal; 2023-05-04)
PROC: 05HB33Z Insertion of Infusion Device into Right Basilic Vein, Percutaneous Approach (ICD-10-PCS; 2023-05-04)
PROC: 05HA33Z Insertion of Infusion Device into Left Brachial Vein, Percutaneous Approach (ICD-10-PCS; 2023-05-04)
DX: I63.89 Other cerebral infarction (principal); N17.0 Acute kidney failure with tubular necrosis; I21.4 Non-ST elevation (NSTEMI) myocardial infarction; G93.41 Metabolic encephalopathy; I50.31 Acute diastolic (congestive) heart failure; E87.20 Acidosis, unspecified; D63.8 Anemia in other chronic diseases classified elsewhere; F29 Unspecified psychosis not due to a substance or known physiological condition; R65.10 Systemic inflammatory response syndrome (SIRS) of non-infectious origin without acute organ dysfunction; I13.0 Hypertensive heart and chronic kidney disease with heart failure and stage 1 through stage 4 chronic kidney disease, or unspecified chronic kidney disease; T83.89XA Other specified complication of genitourinary prosthetic devices, implants and grafts, initial encounter; Z20.822 Contact with and (suspected) exposure to COVID-19; Y83.8 Other surgical procedures as the cause of abnormal reaction of the patient, or of later complication, without mention of misadventure at the time of the procedure; I16.1 Hypertensive emergency; G81.91 Hemiplegia, unspecified affecting right dominant side; K57.30 Diverticulosis of large intestine without perforation or abscess without bleeding; E87.6 Hypokalemia; N18.9 Chronic kidney disease, unspecified; N13.30 Unspecified hydronephrosis; Y92.89 Other specified places as the place of occurrence of the external cause; Z87.891 Personal history of nicotine dependence; Z90.710 Acquired absence of both cervix and uterus; Z79.899 Other long term (current) drug therapy
CPT/HCPCS: 36245; 36569; 70450; 70544; 70551; 71045; 72125; 74176; 75989; 76000; 76770; 76937; 80048; 80053; 80202; 80307; 81001; 82140; 82271; 82550; 82570; 82728; 82962; 83036; 83540; 83550; 83605; 83721; 83735; 83880; 84100; 84145; 84156; 84300; 84484; 84540; 85014; 85018; 85025; 85610; 85730; 86850; 86900; 86901; 86923; 87040; 87077; 87081; 87205; 87804; 92526; 92610; 93005; 93306; 93880; 99291; C9113; G0378; G0480; G0481; J0360; J0696; J2060; J2250; J2270; J2704; J3010; J3370; J3480; J3490; J7030; J7040; J7050; J7060; P9016; Q9967; 36415-L1; 36415-TC

== ENCOUNTER 2023-06-07 13:26 | Inpatient (IN) | payer MEDICAID ==
[~2023-06-07] VITALS: Ht 157.5 cm; Wt 54.2 kg
[2023-06-07] MEDS ORDERED: SODIUM CHLORIDE 0.9% 1,000 ML IV ONE (13:45)
[2023-06-07 14:39] LABS: CALCIUM, TOTAL 7.8 mg/dL (8.8-10.5); CREATININE 4.61 mg/dL (0.60-1.30)
[2023-06-07 14:44] LABS: ALBUMIN 1.5 g/dL (3.4-5.0); BILIRUBIN,TOTAL 0.3 mg/dL (0.1-1.0); TOTAL PROTEIN, SERUM 5.9 g/dL (6.4-8.2)
[2023-06-07 14:45] LABS: LACTIC ACID 1.7 mmol/L (0.4-2.0)
[2023-06-07 14:48] LABS: TROPONIN I-HIGH SENSITIVITY 57 ng/L (<51)
[2023-06-07 15:25] LABS: BASOPHILS % (AUTO) 1.1 % (0.0-2.0); EOSINOPHILS % (AUTO) 4.3 % (1.0-6.0); HEMATOCRIT 23.8 % (36-46); HEMOGLOBIN 7.5 g/dL (12.0-16.0); LYMPHOCYTES # (AUTO) 1.5 K/uL (1.0-4.8); LYMPHOCYTES % (AUTO) 11.3 % (22.0-44.0); MEAN CORPUSCULAR HEMOGLOBIN 24.8 pg (26.0-34.0); MEAN CORPUSCULAR HGB CONC 31.7 G/dL (31.0-37.0); MEAN CORPUSCULAR VOLUME 78 fL (80-100); MONOCYTES # (AUTO) 1.6 K/uL (0.1-1.0); MONOCYTES % (AUTO) 12.1 % (2.0-9.0); NEUTROPHILS # (AUTO) 9.2 K/uL (1.8-7.7); NEUTROPHILS % (AUTO) 71.2 % (40.0-70.0); PLATELET COUNT (AUTO) 302 K/uL (150-450); RED BLOOD CELL COUNT(AUTO) 3.04 MIL/uL (4.00-5.20); RED CELL DISTRIBUTION WIDTH 22.3 % (11.5-14.5)
[2023-06-07 15:29] LABS: CALCIUM, TOTAL 7.9 mg/dL (8.8-10.5); CREATININE 4.48 mg/dL (0.60-1.30)
[2023-06-07 15:35] LABS: ALBUMIN 1.6 g/dL (3.4-5.0); BILIRUBIN,TOTAL 0.3 mg/dL (0.1-1.0); TOTAL PROTEIN, SERUM 5.8 g/dL (6.4-8.2)
[2023-06-07 15:42] LABS: INR 1.1 (0.9-1.1); PROTHROMBIN TIME 11.4 SEC (9.4-11.6)
[2023-06-07] MEDS ORDERED: CefTRIAXone 1 GM/DEXTROSE 50 ML IV ONE (16:15)
[2023-06-07] MEDS: SODIUM CHLORIDE 0.9% 1,000 ML IV ONE ×2 (16:18→16:20)
[2023-06-07 16:24] LABS: RBC MORPHOLOGY COMMENT ABNORMAL RBC MORPH
[2023-06-07 16:52] LABS: COVID AG,FIA SOURCE NASAL SWAB
[2023-06-07 17:13] LABS: SARS-COV2 (COVID) ANTIGEN,FIA Negative (Negative)
[2023-06-07] MEDS ORDERED: HYDROCODONE/ACETAMINOPHEN 5-325 MG TABLET PO PRN (19:45)
[2023-06-07] MEDS ORDERED: BISACODYL 10 MG RECTAL RECTAL SUPPOSITORY PR PRN (19:45)
[2023-06-07] MEDS ORDERED: ONDANSETRON HCL 4 MG/2 ML VIAL IVP PRN (19:45)
[2023-06-07] MEDS ORDERED: ALBUTEROL SULFATE 2.5 MG/0.5 ML NEB SOLUTION NEB PRN (19:45)
[2023-06-07] MEDS ORDERED: ACETAMINOPHEN 325 MG TABLET PO PRN (19:45)
[2023-06-07] MEDS ORDERED: MAGNESIUM HYDROXIDE SUSPENSION 30 ML UDCUP PO PRN (19:45)
[2023-06-07] MEDS ORDERED: IPRATROPIUM BROMIDE 0.5 MG/2.5 ML NEB SOLUTION NEB PRN (19:45)
[2023-06-07] MEDS ORDERED: VANC250C13 IVPB (19:50)
[2023-06-07] MEDS ORDERED: HYDR50TA36 PO (19:50)
[2023-06-07] MEDS ORDERED: POTA10IV IV (19:50)
[2023-06-07] MEDS ORDERED: CEFT1VIA65 IV (19:50)
[2023-06-07] MEDS ORDERED: QUET25TA PO (19:50)
[2023-06-07] MEDS ORDERED: ATOR40TA28 PO (19:50)
[2023-06-07] MEDS ORDERED: PANT40VI14 IVP (19:50)
[2023-06-07] MEDS ORDERED: DIVA125C20 PO (19:50)
[2023-06-07] MEDS ORDERED: AMLO-258 PO (19:50)
[2023-06-07] MEDS ORDERED: DOCU-385 PO (19:50)
[2023-06-07] MEDS ORDERED: CARV6 PO (19:50)
[2023-06-07] MEDS ORDERED: ASPI-1450 PO (19:50)
[2023-06-07] MEDS ORDERED: VANCOMYCIN 1GM/WATER(PEG/NADA) 200 ML IV ONE (20:00)
[2023-06-07] MEDS ORDERED: VANCOMYCIN 1GM/WATER(PEG/NADA) 200 ML IV PRN (20:15)
[2023-06-07] MEDS ORDERED: LORazepam 2 MG/ML VIAL IVP ONE (21:15)
[2023-06-07] MEDS ORDERED: *CLINICAL-CEFEPIME DOSING CLINICAL ONE (21:15)
[2023-06-07] MEDS ORDERED: SODIUM CHLORIDE 0.9% 250 ML IV ONE (21:15)
[2023-06-07] MEDS: SODIUM CHLORIDE 0.9% 1,000 ML IV SCH (21:32)
[2023-06-07 22:12] LABS: TROPONIN I-HIGH SENSITIVITY 74 ng/L (<51)
[2023-06-07 22:40] LABS: APPEARANCE,URINE TURBID (CLEAR); BILIRUBIN,URINE NEGATIVE (NEGATIVE); COLOR,URINE DARK ORANGE (YELLOW); GLUCOSE, URINE (UA) NEGATIVE (NEGATIVE); KETONES,URINE NEGATIVE (NEGATIVE); LEUKOCYTE ESTERASE ,URINE LARGE (NEGATIVE); NITRATE,URINE NEGATIVE (NEGATIVE); OCCULT BLOOD,URINE LARGE (NEGATIVE); PH,URINE 5.5 (5.0-8.0); PROTEIN,URINE 300-600,SEE CONFIRM mg/dL (NEGATIVE); SPECIFIC GRAVITIY, URINE 1.022 (1.003-1.030)
[2023-06-07 22:43] LABS: CREATININE,URINE RANDOM 125.6 mg/dL (30.0-125.0)
[2023-06-07 22:51] LABS: BACTERIA,URINE Many /HPF (None Seen); SQUAMOUS EPITHELIAL CELL,UR None Seen /LPF (None Seen); SULFOSALICYLIC ACID,URINE 3+ (Negative); WBC,URINE >100 /HPF (0-5); YEAST,URINE Many /HPF (None Seen)
[2023-06-07 23:07] VITALS: BP 135/51; PULSE 91; RESP 22; TEMP 98.1
[2023-06-07] MEDS: MORPHINE SULFATE 2 MG/ML SYRINGE IVP PRN (23:14)
[2023-06-08] MEDS ORDERED: CEFEPIME HCL 0.5 GM in DEXTROSE 5%-WATER 50 ML IV ONE ×2
[2023-06-08] MEDS: HEPARIN SODIUM,PORCINE 5,000 UNITS/ML VIAL SQ SCH ×4 (00:11→23:40)
[2023-06-08] MEDS ORDERED: HALOPERIDOL LACTATE 5 MG/ML VIAL IM ONE (00:45)
[2023-06-08] MEDS: MORPHINE SULFATE 2 MG/ML SYRINGE IVP PRN (03:09)
[2023-06-08 04:35] VITALS: BP 142/69; PULSE 96; RESP 20; TEMP 98.2
[2023-06-08 07:12] LABS: CALCIUM, TOTAL 7.5 mg/dL (8.8-10.5); CREATININE 4.89 mg/dL (0.60-1.30); POTASSIUM 4.5 mmol/L (3.5-5.1)
[2023-06-08 07:27] VITALS: BP 111/75; RESP 18; TEMP 98.2
[2023-06-08 08:44] LABS: BASOPHILS % (AUTO) 1.5 % (0.0-2.0); EOSINOPHILS % (AUTO) 2.4 % (1.0-6.0); HEMATOCRIT 23.1 % (36-46); HEMOGLOBIN 7.2 g/dL (12.0-16.0); LYMPHOCYTES # (AUTO) 1.3 K/uL (1.0-4.8); LYMPHOCYTES % (AUTO) 7.1 % (22.0-44.0); MEAN CORPUSCULAR HEMOGLOBIN 24.7 pg (26.0-34.0); MEAN CORPUSCULAR HGB CONC 31.3 G/dL (31.0-37.0); MEAN CORPUSCULAR VOLUME 79 fL (80-100); MONOCYTES # (AUTO) 1.4 K/uL (0.1-1.0); MONOCYTES % (AUTO) 7.6 % (2.0-9.0); NEUTROPHILS % (AUTO) 81.4 % (40.0-70.0); PLATELET COUNT (AUTO) 333 K/uL (150-450); RED BLOOD CELL COUNT(AUTO) 2.93 MIL/uL (4.00-5.20); RED CELL DISTRIBUTION WIDTH 21.9 % (11.5-14.5); WHITE BLOOD COUNT (AUTO) 18.4 K/uL (4.5-11.0)
[2023-06-08] MEDS: PANTOPRAZOLE SODIUM 40 MG DR TABLET PO SCH (08:53)
[2023-06-08] MEDS: SODIUM CHLORIDE 0.9% 1,000 ML IV SCH (08:55)
[2023-06-08 08:57] LABS: ALBUMIN 1.7 g/dL (3.4-5.0); BILIRUBIN,TOTAL 0.4 mg/dL (0.1-1.0); TOTAL PROTEIN, SERUM 6.2 g/dL (6.4-8.2)
[2023-06-08 11:40] VITALS: BP 106/67; PULSE 82; RESP 20; TEMP 98.4
[2023-06-08] MEDS ORDERED: CefTRIAXone 1 GM/DEXTROSE 50 ML IV SCH (13:00)
[2023-06-08] MEDS ORDERED: MIDAZOLAM HCL 2 MG/2 ML VIAL ONE (13:50)
[2023-06-08] MEDS ORDERED: IODIXANOL 320 MG/ML 50 ML VIAL ONE (13:50)
[2023-06-08] MEDS ORDERED: FentaNYL CITRATE PF 100 MCG/2 ML VIAL ONE (13:50)
[2023-06-08] MEDS ORDERED: LIDOCAINE/PF 1% 30 ML VIAL ONE (13:50)
[2023-06-08] MEDS ORDERED: FentaNYL CITRATE PF 100 MCG/2 ML VIAL IVP ONE (15:30)
[2023-06-08] MEDS ORDERED: IODIXANOL 320 MG/ML 50 ML VIAL IVP ONE (15:30)
[2023-06-08 16:58] VITALS: BP 112/70; PULSE 89; RESP 18; TEMP 98
[2023-06-08 19:51] VITALS: BP 100/47; PULSE 74; RESP 19; TEMP 98
[2023-06-08 23:48] VITALS: BP 106/60; PULSE 77; RESP 20; TEMP 98
[2023-06-09] MEDS: MORPHINE SULFATE 2 MG/ML SYRINGE IVP PRN (01:04)
[2023-06-09 05:01] VITALS: BP 112/75; PULSE 80; RESP 19; TEMP 98.2
[2023-06-09] MEDS: SODIUM CHLORIDE 0.9% 1,000 ML IV SCH ×3 (06:29→22:47)
[2023-06-09 08:00] VITALS: BP 112/56; PULSE 74; RESP 19; TEMP 97.6
[2023-06-09] MEDS: HEPARIN SODIUM,PORCINE 5,000 UNITS/ML VIAL SQ SCH ×2 (08:10→16:06)
[2023-06-09] MEDS: PANTOPRAZOLE SODIUM 40 MG DR TABLET PO SCH (08:10)
[2023-06-09 08:35] LABS: CALCIUM, TOTAL 7.9 mg/dL (8.8-10.5); CREATININE 4.75 mg/dL (0.60-1.30); MAGNESIUM 2.5 mg/dL (1.80-2.40); PHOSPHORUS 5.5 mg/dL (2.5-4.9); POTASSIUM 4.4 mmol/L (3.5-5.1); VANCOMYCIN,RANDOM 18.7 mcg/mL (25.0-50.0)
[2023-06-09] MEDS ORDERED: LACTULOSE 20 GM/30 ML SOLUTION UDCUP PO SCH (11:45)
[2023-06-09] MEDS ORDERED: VANCOMYCIN HCL 500 MG in DEXTROSE 5%-WATER 100 ML IV ONE (12:00)
[2023-06-09 12:30] VITALS: BP 136/62; PULSE 58; RESP 20; TEMP 98
[2023-06-09 16:07] VITALS: BP 107/58; PULSE 75; RESP 20; TEMP 97.6
[2023-06-09] MEDS ORDERED: VANC750V IV (16:58)
[2023-06-09] MEDS ORDERED: [UNRECOGNIZED DRUG - OTHER] IVPB SCH (17:00)
[2023-06-09] MEDS ORDERED: CefTRIAXone SODIUM 1 GM/VIAL IV SCH (17:00)
[2023-06-09 20:47] VITALS: BP 116/67; PULSE 85; RESP 21; TEMP 98
[2023-06-09] MEDS: CEFEPIME HCL 0.5 GM in DEXTROSE 5%-WATER 50 ML IV SCH (20:53)
[2023-06-09] MEDS: HydrALAZINE HCL 50 MG TABLET PO SCH ×2 (20:53→21:00)
[2023-06-09] MEDS: QUEtiapine FUMARATE 25 MG TABLET PO SCH (20:54)
[2023-06-09] MEDS: PANTOPRAZOLE SODIUM 40 MG/VIAL IVP SCH (20:54)
[2023-06-09] MEDS: CARVEDILOL 6.25 MG TABLET PO SCH ×2 (20:54→21:00)
[2023-06-09] MEDS: DIVALPROEX SODIUM 125 MG DR CAPSULE PO SCH ×2 (20:54→21:00)
[2023-06-10 00:24] VITALS: BP 131/70; PULSE 85; RESP 19; TEMP 98
[2023-06-10] MEDS: DIVALPROEX SODIUM 125 MG DR CAPSULE PO SCH ×3 (00:52→21:24)
[2023-06-10 04:15] VITALS: BP 131/62; PULSE 92; RESP 21; TEMP 98.5
[2023-06-10 07:14] LABS: CALCIUM, TOTAL 7.7 mg/dL (8.8-10.5); CREATININE 3.75 mg/dL (0.60-1.30); POTASSIUM 4.5 mmol/L (3.5-5.1)
[2023-06-10 08:53] VITALS: BP 141/59; PULSE 88; RESP 20; TEMP 98.6
[2023-06-10] MEDS: PANTOPRAZOLE SODIUM 40 MG/VIAL IVP SCH ×2 (09:40→21:23)
[2023-06-10] MEDS: HydrALAZINE HCL 50 MG TABLET PO SCH ×2 (09:41→21:23)
[2023-06-10] MEDS: ASPIRIN 81 MG CHEWABLE TABLET PO SCH (09:41)
[2023-06-10] MEDS: DOCUSATE SODIUM 100 MG CAPSULE PO SCH (09:41)
[2023-06-10] MEDS: AmLODIPine BESYLATE 10 MG TABLET PO SCH (09:41)
[2023-06-10] MEDS: CARVEDILOL 6.25 MG TABLET PO SCH ×2 (09:42→21:24)
[2023-06-10] MEDS: QUEtiapine FUMARATE 25 MG TABLET PO SCH ×3 (09:42→21:24)
[2023-06-10] MEDS: ATORVASTATIN CALCIUM 40 MG TABLET PO SCH (09:43)
[2023-06-10] MEDS: SODIUM CHLORIDE 0.9% 1,000 ML IV SCH (09:43)
[2023-06-10] MEDS: HEPARIN SODIUM,PORCINE 5,000 UNITS/ML VIAL SQ SCH ×4 (09:44→23:07)
[2023-06-10 11:02] VITALS: BP 124/68; PULSE 85; RESP 18; TEMP 98.2
[2023-06-10] MEDS: SODIUM BICARBONATE 150 MEQ in DEXTROSE 5%-WATER 1,000 ML IV SCH (12:34)
[2023-06-10] MEDS ORDERED: PNEUMOCOCCAL VACCINE POLYVALENT 0.5 ML SYRINGE [PPSV23] IM. ONE (14:45)
[2023-06-10 17:38] VITALS: BP 133/72; PULSE 75; RESP 20; TEMP 97.7
[2023-06-10 19:54] VITALS: BP 131/64; PULSE 81; RESP 20; TEMP 98.6
[2023-06-10] MEDS: ZOLPIDEM TARTRATE 5 MG TABLET PO PRN (21:24)
[2023-06-10] MEDS: CEFEPIME HCL 0.5 GM in DEXTROSE 5%-WATER 50 ML IV SCH (21:53)
[2023-06-11] VITALS (13 sets, daily range): BP systolic 111–148; BP diastolic 58–99; PULSE 68–91; RESP 16–20; TEMP 97.5–98.8
[2023-06-11] MEDS: SODIUM BICARBONATE 150 MEQ in DEXTROSE 5%-WATER 1,000 ML IV SCH ×2 (02:59→23:00)
[2023-06-11 07:51] LABS: CALCIUM, TOTAL 7.5 mg/dL (8.8-10.5); CREATININE 2.38 mg/dL (0.60-1.30); POTASSIUM 4.1 mmol/L (3.5-5.1)
[2023-06-11] MEDS: ATORVASTATIN CALCIUM 40 MG TABLET PO SCH (08:04)
[2023-06-11] MEDS: ASPIRIN 81 MG CHEWABLE TABLET PO SCH (08:04)
[2023-06-11] MEDS: CARVEDILOL 6.25 MG TABLET PO SCH ×2 (08:04→20:12)
[2023-06-11] MEDS: DOCUSATE SODIUM 100 MG CAPSULE PO SCH (08:05)
[2023-06-11] MEDS: AmLODIPine BESYLATE 10 MG TABLET PO SCH (08:05)
[2023-06-11] MEDS: QUEtiapine FUMARATE 25 MG TABLET PO SCH ×3 (08:05→20:12)
[2023-06-11] MEDS: DIVALPROEX SODIUM 125 MG DR CAPSULE PO SCH ×2 (08:05→20:12)
[2023-06-11] MEDS: HEPARIN SODIUM,PORCINE 5,000 UNITS/ML VIAL SQ SCH ×3 (08:06→23:08)
[2023-06-11] MEDS: HydrALAZINE HCL 50 MG TABLET PO SCH ×2 (08:06→20:12)
[2023-06-11] MEDS: PANTOPRAZOLE SODIUM 40 MG/VIAL IVP SCH ×2 (08:06→20:12)
[2023-06-11 08:17] LABS: VANCOMYCIN,RANDOM 17.4 mcg/mL (25.0-50.0)
[2023-06-11 10:30] LABS: EOSINOPHILS % (AUTO) 7.7 % (1.0-6.0); LYMPHOCYTES # (AUTO) 1.2 K/uL (1.0-4.8); LYMPHOCYTES % (AUTO) 13.5 % (22.0-44.0); MEAN CORPUSCULAR HEMOGLOBIN 25.4 pg (26.0-34.0); MEAN CORPUSCULAR HGB CONC 32.4 G/dL (31.0-37.0); MEAN CORPUSCULAR VOLUME 78 fL (80-100); MONOCYTES % (AUTO) 10.8 % (2.0-9.0); NEUTROPHILS # (AUTO) 6.3 K/uL (1.8-7.7); PLATELET COUNT (AUTO) 402 K/uL (150-450); RED BLOOD CELL COUNT(AUTO) 2.59 MIL/uL (4.00-5.20); RED CELL DISTRIBUTION WIDTH 22.3 % (11.5-14.5); WHITE BLOOD COUNT (AUTO) 9.2 K/uL (4.5-11.0)
[2023-06-11 10:34] LABS: ALBUMIN 1.8 g/dL (3.4-5.0); BILIRUBIN,TOTAL 0.3 mg/dL (0.1-1.0); TOTAL PROTEIN, SERUM 6.5 g/dL (6.4-8.2)
[2023-06-11 10:38] LABS: HEMATOCRIT 20.3 % (36-46); HEMOGLOBIN 6.6 g/dL (12.0-16.0)
[2023-06-11 11:07] LABS: RBC MORPHOLOGY COMMENT ABNORMAL RBC MORPH
[2023-06-11] MEDS ORDERED: SODIUM CHLORIDE 0.9% 250 ML IV ONE (13:07)
[2023-06-11] MEDS ORDERED: VANCOMYCIN HCL 500 MG in DEXTROSE 5%-WATER 100 ML IV ONE (15:00)
[2023-06-11 15:34] LABS: APPEARANCE,URINE CLEAR (CLEAR); BILIRUBIN,URINE NEGATIVE (NEGATIVE); COLOR,URINE LIGHT YELLOW (YELLOW); GLUCOSE, URINE (UA) NEGATIVE (NEGATIVE); KETONES,URINE NEGATIVE (NEGATIVE); LEUKOCYTE ESTERASE ,URINE LARGE (NEGATIVE); NITRATE,URINE NEGATIVE (NEGATIVE); OCCULT BLOOD,URINE LARGE (NEGATIVE); PROTEIN,URINE 30-70 mg/dL (NEGATIVE); SPECIFIC GRAVITIY, URINE 1.014 (1.003-1.030); UROBILINOGEN,URINE <=1.0 mg/dL (<=1.0)
[2023-06-11 16:10] LABS: SODIUM,URINE RANDOM 61 mmol/l (20-110); UREA NITROGEN,URINE RANDOM 648 mg/dL (350-1000)
[2023-06-11 16:12] LABS: BACTERIA,URINE Few /HPF (None Seen); YEAST,URINE Moderate /HPF (None Seen)
[2023-06-11 16:13] LABS: RBC,URINE 51-100 /HPF (0-2)
[2023-06-11] MEDS: CEFEPIME HCL 0.5 GM in DEXTROSE 5%-WATER 50 ML IV SCH (20:11)
[2023-06-11] MEDS: ZOLPIDEM TARTRATE 5 MG TABLET PO PRN (20:12)
[2023-06-12 03:55] VITALS: BP 108/64; PULSE 97; RESP 20; TEMP 98.3
[2023-06-12 07:39] LABS: EOSINOPHILS % (AUTO) 11.3 % (1.0-6.0); HEMATOCRIT 24.2 % (36-46); HEMOGLOBIN 8.2 g/dL (12.0-16.0); LYMPHOCYTES # (AUTO) 1.6 K/uL (1.0-4.8); LYMPHOCYTES % (AUTO) 17.4 % (22.0-44.0); MEAN CORPUSCULAR HEMOGLOBIN 26.4 pg (26.0-34.0); MEAN CORPUSCULAR HGB CONC 33.9 G/dL (31.0-37.0); MEAN CORPUSCULAR VOLUME 78 fL (80-100); MONOCYTES % (AUTO) 10.9 % (2.0-9.0); NEUTROPHILS # (AUTO) 5.3 K/uL (1.8-7.7); NEUTROPHILS % (AUTO) 59.4 % (40.0-70.0); PLATELET COUNT (AUTO) 332 K/uL (150-450); RED BLOOD CELL COUNT(AUTO) 3.12 MIL/uL (4.00-5.20); RED CELL DISTRIBUTION WIDTH 20.7 % (11.5-14.5)
[2023-06-12 07:53] LABS: RBC MORPHOLOGY COMMENT ABNORMAL RBC MORPH
[2023-06-12] MEDS: HEPARIN SODIUM,PORCINE 5,000 UNITS/ML VIAL SQ SCH ×3 (08:00→23:26)
[2023-06-12 08:10] VITALS: BP 118/68; PULSE 94; RESP 20; TEMP 98.4
[2023-06-12 08:16] LABS: ALBUMIN 1.7 g/dL (3.4-5.0); BILIRUBIN,TOTAL 0.3 mg/dL (0.1-1.0); CALCIUM, TOTAL 7.5 mg/dL (8.8-10.5); CREATININE 1.43 mg/dL (0.60-1.30); POTASSIUM 3.6 mmol/L (3.5-5.1); TOTAL PROTEIN, SERUM 6.4 g/dL (6.4-8.2)
[2023-06-12] MEDS: QUEtiapine FUMARATE 25 MG TABLET PO SCH ×3 (08:47→20:39)
[2023-06-12] MEDS: HydrALAZINE HCL 50 MG TABLET PO SCH ×2 (08:47→20:38)
[2023-06-12] MEDS: ASPIRIN 81 MG CHEWABLE TABLET PO SCH (08:57)
[2023-06-12] MEDS: DIVALPROEX SODIUM 125 MG DR CAPSULE PO SCH ×2 (08:57→20:39)
[2023-06-12] MEDS: AmLODIPine BESYLATE 10 MG TABLET PO SCH (08:57)
[2023-06-12] MEDS: ATORVASTATIN CALCIUM 40 MG TABLET PO SCH (08:58)
[2023-06-12] MEDS: PANTOPRAZOLE SODIUM 40 MG/VIAL IVP SCH ×2 (08:58→20:39)
[2023-06-12] MEDS: CARVEDILOL 6.25 MG TABLET PO SCH ×2 (08:58→20:39)
[2023-06-12] MEDS: DOCUSATE SODIUM 100 MG CAPSULE PO SCH (09:02)
[2023-06-12] MEDS: DEXTROSE 5%-WATER 1,000 ML IV SCH (11:51)
[2023-06-12] MEDS ORDERED: CEFEPIME HCL 1 GM in DEXTROSE 5%-WATER 50 ML IV SCH (13:00)
[2023-06-12] MEDS ORDERED: VANCOMYCIN HCL 750 MG in DEXTROSE 5%-WATER 250 ML IV ONE (14:00)
[2023-06-12 15:27] VITALS: BP 124/64; PULSE 88; RESP 20; TEMP 98.2
[2023-06-12 19:28] VITALS: BP 138/83; PULSE 83; RESP 18; TEMP 98.7
[2023-06-13] MEDS: ZOLPIDEM TARTRATE 5 MG TABLET PO PRN (00:36)
[2023-06-13] MEDS: DEXTROSE 5%-WATER 1,000 ML IV SCH (03:38)
[2023-06-13 04:55] VITALS: BP 136/53; PULSE 70; RESP 18; TEMP 98.4
[2023-06-13 06:29] LABS: HEMATOCRIT 24.9 % (36-46); HEMOGLOBIN 8.2 g/dL (12.0-16.0); MEAN CORPUSCULAR HEMOGLOBIN 25.8 pg (26.0-34.0); MEAN CORPUSCULAR VOLUME 78 fL (80-100); PLATELET COUNT (AUTO) 303 K/uL (150-450); RED BLOOD CELL COUNT(AUTO) 3.18 MIL/uL (4.00-5.20); RED CELL DISTRIBUTION WIDTH 20.4 % (11.5-14.5); WHITE BLOOD COUNT (AUTO) 8.8 K/uL (4.5-11.0)
[2023-06-13 06:54] LABS: CREATININE 1.14 mg/dL (0.60-1.30); POTASSIUM 3.5 mmol/L (3.5-5.1)
[2023-06-13 06:55] LABS: ALBUMIN 1.5 g/dL (3.4-5.0); BILIRUBIN,TOTAL 0.3 mg/dL (0.1-1.0); CALCIUM, TOTAL 7.8 mg/dL (8.8-10.5); TOTAL PROTEIN, SERUM 6.1 g/dL (6.4-8.2)
[2023-06-13] MEDS ORDERED: VANCOMYCIN HCL 750 MG in DEXTROSE 5%-WATER 250 ML IV SCH (08:00)
[2023-06-13 08:25] VITALS: BP 145/62; PULSE 79; RESP 20; TEMP 98.2
[2023-06-13] MEDS: AmLODIPine BESYLATE 10 MG TABLET PO SCH (08:37)
[2023-06-13] MEDS: ATORVASTATIN CALCIUM 40 MG TABLET PO SCH (08:37)
[2023-06-13] MEDS: DIVALPROEX SODIUM 125 MG DR CAPSULE PO SCH (08:37)
[2023-06-13] MEDS: DOCUSATE SODIUM 100 MG CAPSULE PO SCH (08:38)
[2023-06-13] MEDS: QUEtiapine FUMARATE 25 MG TABLET PO SCH (08:38)
[2023-06-13] MEDS: ASPIRIN 81 MG CHEWABLE TABLET PO SCH (08:38)
[2023-06-13] MEDS: HydrALAZINE HCL 50 MG TABLET PO SCH (08:38)
[2023-06-13] MEDS: CARVEDILOL 6.25 MG TABLET PO SCH (08:39)
[2023-06-13] MEDS: HEPARIN SODIUM,PORCINE 5,000 UNITS/ML VIAL SQ SCH (08:39)
[2023-06-13] MEDS: PANTOPRAZOLE SODIUM 40 MG/VIAL IVP SCH (09:00)
[2023-06-13 10:01] LABS: BAND NEUTROPHILS % (MANUAL) 6 % (0-5); EOSINOPHILS % (MANUAL) 15 % (1-6); LYMPHOCYTES % (MANUAL) 15 % (22-44); MONOCYTES % (MANUAL) 2 % (2-9); SEGMENTED NEUTROPHILS % 62 % (40-70); TOTAL CELLS COUNTED 100
[2023-06-13 10:02] LABS: RBC MORPHOLOGY COMMENT ABNORMAL RBC MORPH
== END 2023-06-13 13:40 | DRG 466 ==
LOC: EMS 13:26 → 5S 21:46 → 6S 06-10 12:19
PROVIDERS: ADMIT Hospitalist; ATTEND Hospitalist
PROC: 0T25X0Z Change Drainage Device in Kidney, External Approach (ICD-10-PCS; principal; 2023-06-08)
PROC: 30233N1 Transfusion of Nonautologous Red Blood Cells into Peripheral Vein, Percutaneous Approach (ICD-10-PCS; 2023-06-11)
DX: N99.522 Malfunction of incontinent external stoma of urinary tract (principal); G93.41 Metabolic encephalopathy; E43 Unspecified severe protein-calorie malnutrition; I21.4 Non-ST elevation (NSTEMI) myocardial infarction; N17.9 Acute kidney failure, unspecified; E87.0 Hyperosmolality and hypernatremia; I95.9 Hypotension, unspecified; N13.6 Pyonephrosis; D64.9 Anemia, unspecified; N27.0 Small kidney, unilateral; I16.0 Hypertensive urgency; F99 Mental disorder, not otherwise specified; R74.8 Abnormal levels of other serum enzymes; Z20.822 Contact with and (suspected) exposure to COVID-19; N18.9 Chronic kidney disease, unspecified; Y83.3 Surgical operation with formation of external stoma as the cause of abnormal reaction of the patient, or of later complication, without mention of misadventure at the time of the procedure; I12.9 Hypertensive chronic kidney disease with stage 1 through stage 4 chronic kidney disease, or unspecified chronic kidney disease; I25.2 Old myocardial infarction; Z78.1 Physical restraint status; Z79.899 Other long term (current) drug therapy; Z86.73 Personal history of transient ischemic attack (TIA), and cerebral infarction without residual deficits; Y92.89 Other specified places as the place of occurrence of the external cause; Z68.21 Body mass index [BMI] 21.0-21.9, adult
CPT/HCPCS: 50435; 51705; 71045; 74176; 76705; 80048; 80053; 80202; 81001; 81002; 82570; 83605; 83735; 83880; 84100; 84145; 84300; 84484; 84540; 85025; 85610; 85730; 86850; 86900; 86901; 86923; 87040; 87081; 87086; 87186; 93005; 99291; C9113; J0692; J0696; J1630; J1644; J2060; J2250; J2270; J3010; J3370; J3490; J7030; J7050; J7060; P9016; Q9967; 36415-L1; 36415-TC